=== PATIENT | female | born 1960 | race Caucasian/White ===

== ENCOUNTER 2016-11-23 12:28 | Emergency (ER) | payer MEDICAID ==
[~2016-11-23] VITALS: Ht 149.9 cm; Wt 45.5 kg
[~2016-11-23 12:28] MED LIST: METH10OR11 PO; PROP20 PO
[2016-11-23] MEDS ORDERED: CloNIDine HCL 0.2 MG TABLET PO ONE (14:45)
[2016-11-23 15:03] LABS: BASOPHILS % (AUTO) 0.6 % (0.0-2.0); EOSINOPHILS % (AUTO) 0.2 % (1.0-6.0); HEMOGLOBIN 14.3 g/dL (12.0-16.0); LYMPHOCYTES # (AUTO) 3.2 K/uL (1.0-4.8); LYMPHOCYTES % (AUTO) 23.9 % (22.0-44.0); MEAN CORPUSCULAR HEMOGLOBIN 28.8 pg (26.0-34.0); MEAN CORPUSCULAR HGB CONC 32.5 G/dL (31.0-37.0); MEAN CORPUSCULAR VOLUME 89 fL (80-100); MONOCYTES # (AUTO) 0.7 K/uL (0.1-1.0); MONOCYTES % (AUTO) 5.3 % (2.0-9.0); NEUTROPHILS # (AUTO) 9.4 K/uL (1.8-7.7); PLATELET COUNT (AUTO) 358 K/uL (150-450); RED BLOOD CELL COUNT(AUTO) 4.95 MIL/uL (4.00-5.20); RED CELL DISTRIBUTION WIDTH 14.6 % (11.5-14.5); WHITE BLOOD COUNT (AUTO) 13.5 K/uL (4.5-11.0)
[2016-11-23 15:14] LABS: ANION GAP 9 mmol/L (8-16); CALCIUM, TOTAL 9.5 mg/dL (8.8-10.5); CARBON DIOXIDE 28 mmol/L (22-29); CHLORIDE 101 mmol/L (98-107); GLOMERULAR FILTR. RATE CALC > 60 mL/min (>60); POTASSIUM 3.9 mmol/L (3.5-5.1); SODIUM SERUM 138 mmol/L (136-145); UREA NITROGEN, BLOOD 14 mg/dL (7-18)
[2016-11-23 15:20] LABS: ALANINE AMINOTRANSFERASE 16 U/L (12-78); ALBUMIN 4.2 g/dL (3.4-5.0); ASPARTATE AMINOTRANSFERASE 20 U/L (15-37); BILIRUBIN,TOTAL 0.4 mg/dL (0.1-1.0); CREATINE KINASE, TOTAL 57 U/L (26-192)
[2016-11-23 16:54] LABS: APPEARANCE,URINE CLEAR (CLEAR); GLUCOSE, URINE (UA) NEGATIVE (NEGATIVE); KETONES,URINE NEGATIVE (NEGATIVE); LEUKOCYTE ESTERASE ,URINE NEGATIVE (NEGATIVE); OCCULT BLOOD,URINE NEGATIVE (NEGATIVE); PH,URINE 5.5 (5.0-8.0); PROTEIN,URINE NEGATIVE (NEGATIVE)
[2016-11-23 17:06] LABS: ADD UA MICROSCOPIC YES
[2016-11-23 17:08] LABS: RBC,URINE None Seen /HPF (0-2); WBC,URINE 0-2 /HPF (0-5)
[2016-11-23 17:09] LABS: SQUAMOUS EPITHELIAL CELL,UR Few /LPF (None Seen)
[2016-11-23 17:10] LABS: CALCIUM OXALATE CRYSTALS,UR Few /LPF (None Seen)
[2016-11-23 17:46] VITALS: BP 167/103
== END 2016-11-23 17:53 | disposition home or self-care (01) ==
LOC: EMS 12:29
DX: F13.239 Sedative, hypnotic or anxiolytic dependence with withdrawal, unspecified (principal); R11.0 Nausea; Z88.0 Allergy status to penicillin
CPT/HCPCS: 36415; 80053; 80307; 81001; 82550; 84484; 85025; 93005; 99285; G0480

== ENCOUNTER 2017-02-01 15:33 | Emergency (ER) | payer MEDICAID ==
[~2017-02-01] VITALS: Ht 162.6 cm; Wt 41.8 kg
[2017-02-01 19:36] LABS: GLUCOSE,POINT OF CARE 98 MG/DL (70-110)
[2017-02-01 19:59] VITALS: BP 122/73
== END 2017-02-01 20:32 | disposition home or self-care (01) ==
LOC: EMS 15:34
DX: R60.9 Edema, unspecified (principal); Z88.0 Allergy status to penicillin
CPT/HCPCS: 82948; 82962; 93005; 99283

== ENCOUNTER 2017-07-05 11:50 | Emergency (ER) | payer MEDICAID ==
[~2017-07-05] VITALS: Ht 160 cm; Wt 40.9 kg
[~2017-07-05 11:50] MED LIST changes: +BACTDSB PO; -PROP20 PO
[2017-07-05 14:58] LABS: BASOPHILS # (AUTO) 0.02 K/uL (0.00-0.20); BASOPHILS % (AUTO) 0.3 % (0.0-2.0); EOSINOPHILS # (AUTO) 0.19 K/uL (0.00-0.70); EOSINOPHILS % (AUTO) 2.33 % (1.0-6.0); HEMATOCRIT 36.6 % (36-46); HEMOGLOBIN 11.8 g/dL (12.0-16.0); LYMPHOCYTES # (AUTO) 2.1 K/uL (1.0-4.8); MEAN CORPUSCULAR HEMOGLOBIN 29.9 pg (26.0-34.0); MEAN CORPUSCULAR HGB CONC 32.3 G/dL (31.0-37.0); MEAN CORPUSCULAR VOLUME 92 fL (80-100); MONOCYTES # (AUTO) 0.5 K/uL (0.1-1.0); MONOCYTES % (AUTO) 6.4 % (2.0-9.0); NEUTROPHILS # (AUTO) 5.3 K/uL (1.8-7.7); NEUTROPHILS % (AUTO) 64.9 % (40.0-70.0); PLATELET COUNT (AUTO) 330 K/uL (150-450); RED BLOOD CELL COUNT(AUTO) 3.96 MIL/uL (4.00-5.20); RED CELL DISTRIBUTION WIDTH 17.5 % (11.5-14.5)
[2017-07-05 15:08] LABS: ANION GAP 6 mmol/L (8-16); CALCIUM, TOTAL 8.9 mg/dL (8.8-10.5); CARBON DIOXIDE 37 mmol/L (22-29); CHLORIDE 99 mmol/L (98-107); CREATININE 0.68 mg/dL (0.60-1.30); GLOMERULAR FILTR. RATE CALC > 60 mL/min (>60); GLUCOSE,RANDOM 59 mg/dL (70-110); POTASSIUM 3.4 mmol/L (3.5-5.1); SODIUM SERUM 142 mmol/L (136-145); UREA NITROGEN, BLOOD 13 mg/dL (7-18)
[2017-07-05 15:14] LABS: ALANINE AMINOTRANSFERASE 36 U/L (12-78); ALBUMIN 3.3 g/dL (3.4-5.0); ALKALINE PHOSPHATASE 120 U/L (46-116); ASPARTATE AMINOTRANSFERASE 35 U/L (15-37); BILIRUBIN,TOTAL 0.2 mg/dL (0.1-1.0); TOTAL PROTEIN, SERUM 7.8 g/dL (6.4-8.2)
[2017-07-05 15:58] VITALS: BP 104/59
[2017-07-05] MEDS ORDERED: CeFAZolin 1 GM/DEXTROSE 50 ML IV ONE (16:00)
== END 2017-07-05 17:04 | disposition home or self-care (01) ==
LOC: EMS 11:51
DX: R60.0 Localized edema (principal); F15.90 Other stimulant use, unspecified, uncomplicated; Z88.0 Allergy status to penicillin
CPT/HCPCS: 36415; 71010; 80053; 85025; 85379; 93005; 93970; 96365; 99285; J0690

== ENCOUNTER 2018-11-14 13:47 | Emergency (ER) | payer MEDICAID ==
[~2018-11-14] VITALS: Ht 160 cm; Wt 46.8 kg
[~2018-11-14 13:47] MED LIST changes: -BACTDSB PO
[2018-11-14] MEDS ORDERED: METH10SO PO (14:21)
[2018-11-14] MEDS ORDERED: LISI-662 PO (14:22)
[2018-11-14] MEDS ORDERED: KETOROLAC TROMETHAMINE 30 MG/ML VIAL IVP ONE (15:45)
[2018-11-14 16:38] LABS: BASOPHILS % (AUTO) 0.3 % (0.0-2.0); EOSINOPHILS % (AUTO) 0.1 % (1.0-6.0); HEMATOCRIT 40.1 % (36-46); HEMOGLOBIN 13.2 g/dL (12.0-16.0); LYMPHOCYTES # (AUTO) 3.4 K/uL (1.0-4.8); LYMPHOCYTES % (AUTO) 35.8 % (22.0-44.0); MEAN CORPUSCULAR HEMOGLOBIN 29.9 pg (26.0-34.0); MEAN CORPUSCULAR VOLUME 91 fL (80-100); MONOCYTES # (AUTO) 0.4 K/uL (0.1-1.0); MONOCYTES % (AUTO) 4.5 % (2.0-9.0); NEUTROPHILS # (AUTO) 5.7 K/uL (1.8-7.7); NEUTROPHILS % (AUTO) 59.3 % (40.0-70.0); PLATELET COUNT (AUTO) 345 K/uL (150-450); RED BLOOD CELL COUNT(AUTO) 4.43 MIL/uL (4.00-5.20); RED CELL DISTRIBUTION WIDTH 13.9 % (11.5-14.5)
[2018-11-14 16:49] LABS: APPEARANCE,URINE CLEAR (CLEAR); GLUCOSE, URINE (UA) NEGATIVE (NEGATIVE); KETONES,URINE TRACE mg/dL (NEGATIVE); LEUKOCYTE ESTERASE ,URINE NEGATIVE (NEGATIVE); NITRATE,URINE NEGATIVE (NEGATIVE); OCCULT BLOOD,URINE NEGATIVE (NEGATIVE); PH,URINE 5.5 (5.0-8.0); PROTEIN,URINE NEGATIVE (NEGATIVE)
[2018-11-14 16:53] LABS: ANION GAP 10 mmol/L (8-16); CALCIUM, TOTAL 9.5 mg/dL (8.8-10.5); CARBON DIOXIDE 29 mmol/L (22-29); CHLORIDE 103 mmol/L (98-107); CREATININE 0.72 mg/dL (0.60-1.30); GLOMERULAR FILTR. RATE CALC > 60 mL/min (>60); GLUCOSE,RANDOM 82 mg/dL (70-110); POTASSIUM 3.4 mmol/L (3.5-5.1); SODIUM SERUM 142 mmol/L (136-145); UREA NITROGEN, BLOOD 23 mg/dL (7-18)
[2018-11-14] MEDS ORDERED: GADOBUTROL 1 MMOL/ML 10 ML VIAL IVP ONE (16:53)
[2018-11-14 16:56] LABS: BILIRUBIN,URINE PRELIM. POSITIVE (NEGATIVE)
[2018-11-14 16:58] LABS: ALANINE AMINOTRANSFERASE 34 U/L (12-78); ALBUMIN 4.4 g/dL (3.4-5.0); ALKALINE PHOSPHATASE 86 U/L (46-116); ASPARTATE AMINOTRANSFERASE 37 U/L (15-37); BILIRUBIN,TOTAL 0.4 mg/dL (0.1-1.0); LIPASE 129 U/L (73-393); TOTAL PROTEIN, SERUM 8.3 g/dL (6.4-8.2)
[2018-11-14 17:18] LABS: WBC,URINE 0-2 /HPF (0-5)
[2018-11-14 17:19] LABS: BACTERIA,URINE None Seen /HPF (None Seen); RBC,URINE 0-2 /HPF (0-2); SQUAMOUS EPITHELIAL CELL,UR Few /LPF (None Seen)
[2018-11-14] MEDS ORDERED: ONDANSETRON HCL 4 MG/2 ML VIAL IVP ONE (20:30)
[2018-11-14 20:36] VITALS: BP 147/87
== END 2018-11-14 20:59 | disposition home or self-care (01) ==
LOC: EMS 13:52
DX: K80.20 Calculus of gallbladder without cholecystitis without obstruction (principal); K83.8 Other specified diseases of biliary tract; F31.9 Bipolar disorder, unspecified; F41.9 Anxiety disorder, unspecified; F11.90 Opioid use, unspecified, uncomplicated; Z88.0 Allergy status to penicillin
CPT/HCPCS: 36415; 74183; 76705; 80053; 81001; 83690; 84484; 85025; 93005; 96374; 96375; 99284; A9585; J1885; J2405

== ENCOUNTER 2020-04-22 13:06 | Emergency (ER) | payer MEDICAID ==
[~2020-04-22] VITALS: Ht 160 cm; Wt 40.9 kg
[~2020-04-22 13:06] MED LIST changes: +LISI-662 PO; -METH10OR11 PO; +METH10SO PO
[2020-04-22 14:53] LABS: BASOPHILS % (AUTO) 0.2 % (0.0-2.0); EOSINOPHILS % (AUTO) 0.2 % (1.0-6.0); HEMOGLOBIN 12.7 g/dL (12.0-16.0); LYMPHOCYTES # (AUTO) 4.9 K/uL (1.0-4.8); LYMPHOCYTES % (AUTO) 36.8 % (22.0-44.0); MEAN CORPUSCULAR HEMOGLOBIN 30.4 pg (26.0-34.0); MEAN CORPUSCULAR HGB CONC 32.6 G/dL (31.0-37.0); MEAN CORPUSCULAR VOLUME 94 fL (80-100); MONOCYTES # (AUTO) 0.8 K/uL (0.1-1.0); MONOCYTES % (AUTO) 5.8 % (2.0-9.0); NEUTROPHILS # (AUTO) 7.5 K/uL (1.8-7.7); PLATELET COUNT (AUTO) 354 K/uL (150-450); RED BLOOD CELL COUNT(AUTO) 4.17 MIL/uL (4.00-5.20); RED CELL DISTRIBUTION WIDTH 13.7 % (11.5-14.5)
[2020-04-22 15:13] LABS: CALCIUM, TOTAL 10.2 mg/dL (8.8-10.5); CREATININE 1.32 mg/dL (0.60-1.30); POTASSIUM 3.9 mmol/L (3.5-5.1)
[2020-04-22 16:10] VITALS: BP 114/88
== END 2020-04-22 16:16 | disposition home or self-care (01) ==
LOC: EMS 13:09
DX: I10 Essential (primary) hypertension (principal); G47.00 Insomnia, unspecified; F41.9 Anxiety disorder, unspecified; F31.9 Bipolar disorder, unspecified; F11.90 Opioid use, unspecified, uncomplicated; Z79.899 Other long term (current) drug therapy
CPT/HCPCS: 93005

== ENCOUNTER 2020-06-12 11:24 | Emergency (ER) | payer MEDICAID ==
[~2020-06-12] VITALS: Ht 167.6 cm; Wt 75.0 kg
[2020-06-12 12:10] LABS: BASOPHILS % (AUTO) 0.2 % (0.0-2.0); EOSINOPHILS % (AUTO) 0 % (1.0-6.0); HEMATOCRIT 35.6 % (36-46); HEMOGLOBIN 11.7 g/dL (12.0-16.0); LYMPHOCYTES # (AUTO) 3.7 K/uL (1.0-4.8); LYMPHOCYTES % (AUTO) 23.1 % (22.0-44.0); MEAN CORPUSCULAR HEMOGLOBIN 30.3 pg (26.0-34.0); MEAN CORPUSCULAR HGB CONC 32.9 G/dL (31.0-37.0); MEAN CORPUSCULAR VOLUME 92 fL (80-100); MONOCYTES # (AUTO) 0.5 K/uL (0.1-1.0); MONOCYTES % (AUTO) 3.1 % (2.0-9.0); NEUTROPHILS # (AUTO) 11.7 K/uL (1.8-7.7); NEUTROPHILS % (AUTO) 73.6 % (40.0-70.0); PLATELET COUNT (AUTO) 361 K/uL (150-450); RED BLOOD CELL COUNT(AUTO) 3.88 MIL/uL (4.00-5.20); RED CELL DISTRIBUTION WIDTH 13.4 % (11.5-14.5)
[2020-06-12 12:28] LABS: CALCIUM, TOTAL 9.6 mg/dL (8.8-10.5); CREATININE 0.99 mg/dL (0.60-1.30); POTASSIUM 3.5 mmol/L (3.5-5.1)
[2020-06-12 12:32] LABS: ALBUMIN 3.3 g/dL (3.4-5.0); BILIRUBIN,TOTAL 0.4 mg/dL (0.1-1.0); TOTAL PROTEIN, SERUM 7.7 g/dL (6.4-8.2)
[2020-06-12] MEDS ORDERED: PB/HYOSCY/ATR/SCOP/LIDO/MAALOX 55 ML BOTTLE PO ONE (14:15)
[2020-06-12] MEDS ORDERED: ONDANSETRON HCL 4 MG TABLET PO ONE (14:15)
[2020-06-12 14:53] VITALS: BP 143/94
== END 2020-06-12 15:01 | disposition home or self-care (01) ==
LOC: EMS 11:25
DX: K29.60 Other gastritis without bleeding (principal); R10.13 Epigastric pain; R11.0 Nausea; F15.90 Other stimulant use, unspecified, uncomplicated; Z88.0 Allergy status to penicillin
CPT/HCPCS: 36415; 80053; 83690; 84484; 85025; 93005; 99284; Q0162

== ENCOUNTER 2022-01-23 10:42 | Inpatient (IN) | payer MEDICAID ==
[~2022-01-23] VITALS: Ht 162.6 cm; Wt 42.2 kg
[~2022-01-23 10:42] MED LIST changes: -LISI-662 PO; +LISI-894 PO
[2022-01-23 11:33] LABS: EOSINOPHILS % (AUTO) 0 % (1.0-6.0); HEMOGLOBIN 13.4 g/dL (12.0-16.0); LYMPHOCYTES # (AUTO) 3.7 K/uL (1.0-4.8); LYMPHOCYTES % (AUTO) 17.1 % (22.0-44.0); MEAN CORPUSCULAR HEMOGLOBIN 30.8 pg (26.0-34.0); MEAN CORPUSCULAR HGB CONC 33.6 G/dL (31.0-37.0); MEAN CORPUSCULAR VOLUME 92 fL (80-100); MONOCYTES # (AUTO) 0.6 K/uL (0.1-1.0); MONOCYTES % (AUTO) 2.6 % (2.0-9.0); NEUTROPHILS # (AUTO) 17.2 K/uL (1.8-7.7); NEUTROPHILS % (AUTO) 80.3 % (40.0-70.0); PLATELET COUNT (AUTO) 346 K/uL (150-450); RED BLOOD CELL COUNT(AUTO) 4.36 MIL/uL (4.00-5.20); RED CELL DISTRIBUTION WIDTH 12.8 % (11.5-14.5)
[2022-01-23 11:48] LABS: COVID AG,FIA SOURCE NASOPHARYNGEAL
[2022-01-23 11:57] LABS: ANION GAP 10 mmol/L (8-16); CALCIUM, TOTAL 9.3 mg/dL (8.8-10.5); CARBON DIOXIDE 28 mmol/L (22-29); CHLORIDE 92 mmol/L (98-107); CREATININE 0.94 mg/dL (0.60-1.30); GLOMERULAR FILTR. RATE CALC 60 mL/min (>60); GLUCOSE,RANDOM 229 mg/dL (70-110); POTASSIUM 3.6 mmol/L (3.5-5.1); SODIUM SERUM 130 mmol/L (136-145); UREA NITROGEN, BLOOD 26 mg/dL (7-18)
[2022-01-23 12:02] LABS: ALANINE AMINOTRANSFERASE 44 U/L (12-78); ALBUMIN 4.1 g/dL (3.4-5.0); ALKALINE PHOSPHATASE 117 U/L (46-116); ASPARTATE AMINOTRANSFERASE 56 U/L (15-37); BILIRUBIN,TOTAL 0.7 mg/dL (0.1-1.0); TOTAL PROTEIN, SERUM 9.3 g/dL (6.4-8.2)
[2022-01-23 12:10] LABS: ACETAMINOPHEN < 2 mcg/mL (10-30)
[2022-01-23] MEDS ORDERED: QUEtiapine FUMARATE 100 MG TABLET PO PRN (12:15)
[2022-01-23] MEDS ORDERED: ZOLPIDEM TARTRATE 10 MG TABLET PO PRN (12:15)
[2022-01-23] MEDS ORDERED: LORazepam 2 MG TABLET PO PRN (12:15)
[2022-01-23] MEDS ORDERED: LORazepam 2 MG/ML VIAL ONE (12:19)
[2022-01-23] MEDS ORDERED: LORazepam 2 MG/ML VIAL IM ONE (12:30)
[2022-01-23] MEDS ORDERED: SODIUM CHLORIDE 0.9% 1,000 ML IV ONE (14:45)
[2022-01-23 14:57] LABS: SALICYLATE 1.1 mg/dL (2.8-20.0)
[2022-01-23] MEDS ORDERED: BISACODYL 10 MG RECTAL RECTAL SUPPOSITORY PR PRN (15:00)
[2022-01-23] MEDS ORDERED: MAGNESIUM HYDROXIDE SUSPENSION 30 ML UDCUP PO PRN (15:00)
[2022-01-23] MEDS ORDERED: ONDANSETRON HCL 4 MG/2 ML VIAL IVP PRN (15:00)
[2022-01-23] MEDS ORDERED: LORazepam 2 MG/ML VIAL IVP PRN (15:00)
[2022-01-23] MEDS ORDERED: MORPHINE SULFATE 2 MG/ML SYRINGE IVP PRN (15:00)
[2022-01-23] MEDS ORDERED: ZOLPIDEM TARTRATE 5 MG TABLET PO PRN (15:00)
[2022-01-23 17:03] LABS: APPEARANCE,URINE CLEAR (CLEAR); BILIRUBIN,URINE NEGATIVE (NEGATIVE); GLUCOSE, URINE (UA) 300-500 mg/dL (NEGATIVE); LEUKOCYTE ESTERASE ,URINE NEGATIVE (NEGATIVE); NITRATE,URINE NEGATIVE (NEGATIVE); OCCULT BLOOD,URINE MODERATE (NEGATIVE); PH,URINE 5.5 (5.0-8.0); PROTEIN,URINE 30-70 mg/dL (NEGATIVE); SPECIFIC GRAVITIY, URINE 1.016 (1.003-1.030); UROBILINOGEN,URINE <=1.0 mg/dL (<=1.0)
[2022-01-23 17:11] LABS: AMPHET/METH SCREEN,URINE NEGATIVE (NEGATIVE); BARBITURATE SCREEN, URINE NEGATIVE (NEGATIVE); BENZODIAZEPINES SCREEN,URINE POSITIVE (NEGATIVE); CANNABINOID SCREEN,URINE NEGATIVE (NEGATIVE); COCAINE SCREEN,URINE NEGATIVE (NEGATIVE); METHADONE SCREEN, URINE POSITIVE (NEGATIVE); OPIATE SCREEN,URINE NEGATIVE (NEGATIVE)
[2022-01-23 17:12] LABS: PHENCYCLIDINE SCREEN,URINE NEGATIVE (NEGATIVE)
[2022-01-23] MEDS: HEPARIN SODIUM,PORCINE 5,000 UNITS/ML VIAL SQ SCH ×2 (17:25→23:51)
[2022-01-23 18:09] LABS: SQUAMOUS EPITHELIAL CELL,UR Rare /LPF (None Seen)
[2022-01-23 18:11] LABS: WBC,URINE 0-2 /HPF (0-5)
[2022-01-23 18:12] LABS: BACTERIA,URINE None Seen /HPF (None Seen)
[2022-01-23] MEDS: HYDROCODONE/ACETAMINOPHEN 5-325 MG TABLET PO PRN (20:44)
[2022-01-23] MEDS: LevETIRAcetam 500 MG TABLET PO SCH (20:44)
[2022-01-23] MEDS: DOCUSATE SODIUM 100 MG CAPSULE PO SCH (20:44)
[2022-01-23 21:12] VITALS: BP 144/85
[2022-01-24] VITALS (7 sets, daily range): BP systolic 112–154; BP diastolic 70–87
[2022-01-24] MEDS: LevETIRAcetam 500 MG TABLET PO SCH ×2 (08:33→20:17)
[2022-01-24] MEDS: LISINOPRIL 20 MG TABLET PO SCH (08:33)
[2022-01-24] MEDS: PANTOPRAZOLE SODIUM 40 MG DR TABLET PO SCH (08:33)
[2022-01-24] MEDS: DOCUSATE SODIUM 100 MG CAPSULE PO SCH ×2 (08:34→20:17)
[2022-01-24] MEDS: HEPARIN SODIUM,PORCINE 5,000 UNITS/ML VIAL SQ SCH ×2 (08:34→16:37)
[2022-01-24 11:13] LABS: BASOPHILS % (AUTO) 0.1 % (0.0-2.0); EOSINOPHILS % (AUTO) 0.1 % (1.0-6.0); HEMOGLOBIN 12.3 g/dL (12.0-16.0); LYMPHOCYTES % (AUTO) 17.1 % (22.0-44.0); MEAN CORPUSCULAR HEMOGLOBIN 30.6 pg (26.0-34.0); MEAN CORPUSCULAR HGB CONC 33.3 G/dL (31.0-37.0); MEAN CORPUSCULAR VOLUME 92 fL (80-100); MONOCYTES # (AUTO) 0.8 K/uL (0.1-1.0); MONOCYTES % (AUTO) 4.7 % (2.0-9.0); NEUTROPHILS # (AUTO) 13.5 K/uL (1.8-7.7); PLATELET COUNT (AUTO) 217 K/uL (150-450); RED BLOOD CELL COUNT(AUTO) 4.03 MIL/uL (4.00-5.20); RED CELL DISTRIBUTION WIDTH 12.9 % (11.5-14.5)
[2022-01-24 11:29] LABS: ANION GAP 10 mmol/L (8-16); CALCIUM, TOTAL 9.1 mg/dL (8.8-10.5); CARBON DIOXIDE 27 mmol/L (22-29); CHLORIDE 97 mmol/L (98-107); CREATININE 0.74 mg/dL (0.60-1.30); GLOMERULAR FILTR. RATE CALC > 60 mL/min (>60); GLUCOSE,RANDOM 106 mg/dL (70-110); SODIUM SERUM 134 mmol/L (136-145); UREA NITROGEN, BLOOD 22 mg/dL (7-18)
[2022-01-24] MEDS: METHADONE HCL 10 MG TABLET PO SCH (13:42)
[2022-01-24] MEDS: HYDROCODONE/ACETAMINOPHEN 5-325 MG TABLET PO PRN (20:22)
[2022-01-25 03:52] VITALS: BP 122/75
[2022-01-25 07:30] VITALS: BP 140/78
[2022-01-25] MEDS: LevETIRAcetam 500 MG TABLET PO SCH ×2 (08:45→20:07)
[2022-01-25] MEDS: PANTOPRAZOLE SODIUM 40 MG DR TABLET PO SCH (08:45)
[2022-01-25] MEDS: METHADONE HCL 10 MG TABLET PO SCH (08:46)
[2022-01-25] MEDS: HEPARIN SODIUM,PORCINE 5,000 UNITS/ML VIAL SQ SCH ×3 (08:46→16:39)
[2022-01-25] MEDS: LISINOPRIL 20 MG TABLET PO SCH (08:46)
[2022-01-25] MEDS: DOCUSATE SODIUM 100 MG CAPSULE PO SCH ×2 (08:46→20:07)
[2022-01-25 12:16] VITALS: BP 120/79
[2022-01-25 13:18] LABS: BASOPHILS % (AUTO) 0.1 % (0.0-2.0); EOSINOPHILS % (AUTO) 0 % (1.0-6.0); HEMATOCRIT 38.4 % (36-46); HEMOGLOBIN 12.6 g/dL (12.0-16.0); LYMPHOCYTES # (AUTO) 2.8 K/uL (1.0-4.8); LYMPHOCYTES % (AUTO) 20.2 % (22.0-44.0); MEAN CORPUSCULAR HEMOGLOBIN 30.4 pg (26.0-34.0); MEAN CORPUSCULAR HGB CONC 32.8 G/dL (31.0-37.0); MEAN CORPUSCULAR VOLUME 93 fL (80-100); MONOCYTES # (AUTO) 0.7 K/uL (0.1-1.0); MONOCYTES % (AUTO) 4.7 % (2.0-9.0); NEUTROPHILS # (AUTO) 10.5 K/uL (1.8-7.7); PLATELET COUNT (AUTO) 220 K/uL (150-450); RED BLOOD CELL COUNT(AUTO) 4.15 MIL/uL (4.00-5.20); RED CELL DISTRIBUTION WIDTH 13.2 % (11.5-14.5)
[2022-01-25 13:25] LABS: ANION GAP 8 mmol/L (8-16); CALCIUM, TOTAL 9.3 mg/dL (8.8-10.5); CARBON DIOXIDE 31 mmol/L (22-29); CHLORIDE 96 mmol/L (98-107); CREATININE 0.82 mg/dL (0.60-1.30); GLOMERULAR FILTR. RATE CALC > 60 mL/min (>60); GLUCOSE,RANDOM 76 mg/dL (70-110); SODIUM SERUM 135 mmol/L (136-145); UREA NITROGEN, BLOOD 25 mg/dL (7-18)
[2022-01-25 15:08] VITALS: BP 145/80
[2022-01-25] MEDS: ACETAMINOPHEN 325 MG TABLET PO PRN (20:07)
[2022-01-25 20:12] VITALS: BP 122/71
[2022-01-26] VITALS (7 sets, daily range): BP systolic 104–132; BP diastolic 63–76
[2022-01-26] MEDS: HEPARIN SODIUM,PORCINE 5,000 UNITS/ML VIAL SQ SCH ×4 (00:14→23:58)
[2022-01-26 06:30] LABS: BASOPHILS % (AUTO) 0.1 % (0.0-2.0); EOSINOPHILS % (AUTO) 0 % (1.0-6.0); HEMATOCRIT 32.5 % (36-46); LYMPHOCYTES # (AUTO) 1.7 K/uL (1.0-4.8); LYMPHOCYTES % (AUTO) 10.8 % (22.0-44.0); MEAN CORPUSCULAR HEMOGLOBIN 30.8 pg (26.0-34.0); MEAN CORPUSCULAR HGB CONC 33.8 G/dL (31.0-37.0); MEAN CORPUSCULAR VOLUME 91 fL (80-100); MONOCYTES # (AUTO) 0.9 K/uL (0.1-1.0); MONOCYTES % (AUTO) 5.7 % (2.0-9.0); NEUTROPHILS # (AUTO) 12.8 K/uL (1.8-7.7); NEUTROPHILS % (AUTO) 83.4 % (40.0-70.0); PLATELET COUNT (AUTO) 181 K/uL (150-450); RED BLOOD CELL COUNT(AUTO) 3.57 MIL/uL (4.00-5.20)
[2022-01-26 06:42] LABS: ANION GAP 3 mmol/L (8-16); CALCIUM, TOTAL 8.4 mg/dL (8.8-10.5); CARBON DIOXIDE 32 mmol/L (22-29); CHLORIDE 98 mmol/L (98-107); CREATININE 0.69 mg/dL (0.60-1.30); GLOMERULAR FILTR. RATE CALC > 60 mL/min (>60); GLUCOSE,RANDOM 103 mg/dL (70-110); POTASSIUM 3.9 mmol/L (3.5-5.1); SODIUM SERUM 133 mmol/L (136-145); UREA NITROGEN, BLOOD 26 mg/dL (7-18)
[2022-01-26] MEDS: LISINOPRIL 20 MG TABLET PO SCH (08:39)
[2022-01-26] MEDS: DOCUSATE SODIUM 100 MG CAPSULE PO SCH ×2 (08:39→20:02)
[2022-01-26] MEDS: METHADONE HCL 10 MG TABLET PO SCH (08:39)
[2022-01-26] MEDS: LevETIRAcetam 500 MG TABLET PO SCH ×2 (08:39→20:02)
[2022-01-26] MEDS: PANTOPRAZOLE SODIUM 40 MG DR TABLET PO SCH (08:40)
[2022-01-26] MEDS: ACETAMINOPHEN 325 MG TABLET PO PRN (20:02)
[2022-01-27 04:45] VITALS: BP 99/57
[2022-01-27 07:32] LABS: APPEARANCE,URINE CLEAR (CLEAR); BILIRUBIN,URINE NEGATIVE (NEGATIVE); GLUCOSE, URINE (UA) 70-100 mg/dL (NEGATIVE); LEUKOCYTE ESTERASE ,URINE SMALL (NEGATIVE); NITRATE,URINE NEGATIVE (NEGATIVE); OCCULT BLOOD,URINE NEGATIVE (NEGATIVE); PH,URINE 6.5 (5.0-8.0); PROTEIN,URINE 30-70 mg/dL (NEGATIVE); SPECIFIC GRAVITIY, URINE 1.042 (1.003-1.030)
[2022-01-27 07:37] LABS: BASOPHILS % (AUTO) 0.1 % (0.0-2.0); EOSINOPHILS % (AUTO) 0.1 % (1.0-6.0); HEMATOCRIT 34.4 % (36-46); HEMOGLOBIN 11.2 g/dL (12.0-16.0); MEAN CORPUSCULAR HEMOGLOBIN 30.1 pg (26.0-34.0); MEAN CORPUSCULAR HGB CONC 32.5 G/dL (31.0-37.0); MEAN CORPUSCULAR VOLUME 93 fL (80-100); MONOCYTES # (AUTO) 0.9 K/uL (0.1-1.0); MONOCYTES % (AUTO) 5.7 % (2.0-9.0); NEUTROPHILS # (AUTO) 11.2 K/uL (1.8-7.7); NEUTROPHILS % (AUTO) 74.1 % (40.0-70.0); PLATELET COUNT (AUTO) 212 K/uL (150-450); RED BLOOD CELL COUNT(AUTO) 3.71 MIL/uL (4.00-5.20); RED CELL DISTRIBUTION WIDTH 13.1 % (11.5-14.5)
[2022-01-27 07:38] VITALS: BP 119/70
[2022-01-27 07:42] LABS: ANION GAP 3 mmol/L (8-16); CALCIUM, TOTAL 9.1 mg/dL (8.8-10.5); CARBON DIOXIDE 37 mmol/L (22-29); CHLORIDE 98 mmol/L (98-107); GLOMERULAR FILTR. RATE CALC > 60 mL/min (>60); GLUCOSE,RANDOM 108 mg/dL (70-110); POTASSIUM 4.5 mmol/L (3.5-5.1); SODIUM SERUM 138 mmol/L (136-145); UREA NITROGEN, BLOOD 26 mg/dL (7-18)
[2022-01-27] MEDS: LISINOPRIL 20 MG TABLET PO SCH (08:42)
[2022-01-27] MEDS: PANTOPRAZOLE SODIUM 40 MG DR TABLET PO SCH (08:42)
[2022-01-27] MEDS: HEPARIN SODIUM,PORCINE 5,000 UNITS/ML VIAL SQ SCH ×3 (08:42→23:31)
[2022-01-27] MEDS: LevETIRAcetam 500 MG TABLET PO SCH ×2 (08:43→19:41)
[2022-01-27] MEDS: METHADONE HCL 10 MG TABLET PO SCH (08:43)
[2022-01-27] MEDS: DOCUSATE SODIUM 100 MG CAPSULE PO SCH ×2 (08:43→21:00)
[2022-01-27 09:31] LABS: BACTERIA,URINE None Seen /HPF (None Seen); RBC,URINE None Seen /HPF (0-2)
[2022-01-27 09:32] LABS: SQUAMOUS EPITHELIAL CELL,UR Rare /LPF (None Seen); TRIPLE PHOSPHATE CRYSTAL,UR Few /LPF (None Seen)
[2022-01-27 11:39] VITALS: BP 120/70
[2022-01-27 15:24] VITALS: BP 110/72
[2022-01-27 19:24] VITALS: BP 145/76
[2022-01-27] MEDS: ACETAMINOPHEN 325 MG TABLET PO PRN (19:41)
[2022-01-27 23:07] VITALS: BP 135/78
[2022-01-27] MEDS: MELATONIN 5 MG TABLET PO PRN (23:31)
[2022-01-28 03:30] VITALS: BP 136/73
[2022-01-28 07:52] VITALS: BP 128/72
[2022-01-28] MEDS: HEPARIN SODIUM,PORCINE 5,000 UNITS/ML VIAL SQ SCH ×3 (08:06→23:00)
[2022-01-28] MEDS: DOCUSATE SODIUM 100 MG CAPSULE PO SCH ×3 (08:07→21:00)
[2022-01-28] MEDS: LevETIRAcetam 500 MG TABLET PO SCH ×2 (08:07→20:25)
[2022-01-28] MEDS: METHADONE HCL 10 MG TABLET PO SCH (08:08)
[2022-01-28] MEDS: PANTOPRAZOLE SODIUM 40 MG DR TABLET PO SCH (08:08)
[2022-01-28] MEDS: LISINOPRIL 20 MG TABLET PO SCH (08:08)
[2022-01-28 11:05] VITALS: BP 123/73
[2022-01-28 15:39] VITALS: BP 119/76
[2022-01-28] MEDS: ACETAMINOPHEN 325 MG TABLET PO PRN (20:35)
[2022-01-28 21:50] VITALS: BP 162/70
[2022-01-29 06:56] VITALS: BP 137/87
[2022-01-29 08:07] VITALS: BP 172/87
[2022-01-29] MEDS: DOCUSATE SODIUM 100 MG CAPSULE PO SCH ×2 (09:09→20:14)
[2022-01-29] MEDS: PANTOPRAZOLE SODIUM 40 MG DR TABLET PO SCH (09:11)
[2022-01-29] MEDS: LISINOPRIL 20 MG TABLET PO SCH (09:11)
[2022-01-29] MEDS: LevETIRAcetam 500 MG TABLET PO SCH ×2 (09:11→20:14)
[2022-01-29] MEDS: METHADONE HCL 10 MG TABLET PO SCH (09:11)
[2022-01-29] MEDS: HEPARIN SODIUM,PORCINE 5,000 UNITS/ML VIAL SQ SCH ×2 (09:12→16:34)
[2022-01-29 16:33] VITALS: BP 150/90
[2022-01-29 19:49] VITALS: BP 141/96
[2022-01-30] MEDS: HEPARIN SODIUM,PORCINE 5,000 UNITS/ML VIAL SQ SCH ×4 (00:03→23:43)
[2022-01-30 04:23] VITALS: BP 122/76
[2022-01-30 06:59] LABS: EOSINOPHILS % (AUTO) 0.1 % (1.0-6.0); HEMATOCRIT 32.4 % (36-46); HEMOGLOBIN 10.6 g/dL (12.0-16.0); LYMPHOCYTES # (AUTO) 4.2 K/uL (1.0-4.8); LYMPHOCYTES % (AUTO) 24.5 % (22.0-44.0); MEAN CORPUSCULAR HGB CONC 32.9 G/dL (31.0-37.0); MEAN CORPUSCULAR VOLUME 91 fL (80-100); MONOCYTES # (AUTO) 1.2 K/uL (0.1-1.0); MONOCYTES % (AUTO) 6.9 % (2.0-9.0); NEUTROPHILS # (AUTO) 11.6 K/uL (1.8-7.7); NEUTROPHILS % (AUTO) 68.5 % (40.0-70.0); PLATELET COUNT (AUTO) 337 K/uL (150-450); RED BLOOD CELL COUNT(AUTO) 3.55 MIL/uL (4.00-5.20); RED CELL DISTRIBUTION WIDTH 13.4 % (11.5-14.5)
[2022-01-30 07:16] LABS: ALANINE AMINOTRANSFERASE 28 U/L (12-78); ALBUMIN 2.7 g/dL (3.4-5.0); ALKALINE PHOSPHATASE 93 U/L (46-116); ANION GAP 8 mmol/L (8-16); ASPARTATE AMINOTRANSFERASE 31 U/L (15-37); BILIRUBIN,TOTAL 0.4 mg/dL (0.1-1.0); CARBON DIOXIDE 32 mmol/L (22-29); CHLORIDE 95 mmol/L (98-107); CREATININE 0.63 mg/dL (0.60-1.30); GLOMERULAR FILTR. RATE CALC > 60 mL/min (>60); GLUCOSE,RANDOM 96 mg/dL (70-110); POTASSIUM 4.2 mmol/L (3.5-5.1); SODIUM SERUM 135 mmol/L (136-145); UREA NITROGEN, BLOOD 38 mg/dL (7-18)
[2022-01-30 08:00] VITALS: BP 136/87
[2022-01-30] MEDS: METHADONE HCL 10 MG TABLET PO SCH (08:22)
[2022-01-30] MEDS: DOCUSATE SODIUM 100 MG CAPSULE PO SCH ×2 (08:23→21:00)
[2022-01-30] MEDS: LevETIRAcetam 500 MG TABLET PO SCH ×2 (08:23→21:05)
[2022-01-30] MEDS: PANTOPRAZOLE SODIUM 40 MG DR TABLET PO SCH (08:23)
[2022-01-30] MEDS: LISINOPRIL 20 MG TABLET PO SCH (08:23)
[2022-01-30] MEDS ORDERED: *CLINICAL-CEFEPIME DOSING CLINICAL ONE (13:15)
[2022-01-30] MEDS ORDERED: CEFEPIME HCL 1 GM in DEXTROSE 5%-WATER 50 ML IV ONE (14:00)
[2022-01-30] MEDS ORDERED: SODIUM CHLORIDE 0.9% 100 ML ONE (14:43)
[2022-01-30] MEDS ORDERED: VANCOMYCIN HCL 1 GM in DEXTROSE 5%-WATER 250 ML IV ONE (15:00)
[2022-01-30 15:32] VITALS: BP 130/84
[2022-01-30 16:07] LABS: APPEARANCE,URINE CLEAR (CLEAR); BILIRUBIN,URINE NEGATIVE (NEGATIVE); GLUCOSE, URINE (UA) NEGATIVE (NEGATIVE); KETONES,URINE TRACE mg/dL (NEGATIVE); LEUKOCYTE ESTERASE ,URINE MODERATE (NEGATIVE); NITRATE,URINE NEGATIVE (NEGATIVE); OCCULT BLOOD,URINE NEGATIVE (NEGATIVE); PROTEIN,URINE NEGATIVE (NEGATIVE); SPECIFIC GRAVITIY, URINE 1.024 (1.003-1.030)
[2022-01-30 16:30] LABS: RBC,URINE None Seen /HPF (0-2)
[2022-01-30 16:31] LABS: BACTERIA,URINE None Seen /HPF (None Seen); SQUAMOUS EPITHELIAL CELL,UR Few /LPF (None Seen)
[2022-01-30 20:11] VITALS: BP 142/78
[2022-01-31 04:19] VITALS: BP 130/74
[2022-01-31] MEDS: CEFEPIME HCL 1 GM in DEXTROSE 5%-WATER 50 ML IV SCH ×2 (05:53→16:29)
[2022-01-31 06:12] LABS: BASOPHILS % (AUTO) 0.2 % (0.0-2.0); EOSINOPHILS % (AUTO) 0.4 % (1.0-6.0); HEMATOCRIT 31.1 % (36-46); HEMOGLOBIN 10.3 g/dL (12.0-16.0); LYMPHOCYTES # (AUTO) 4.1 K/uL (1.0-4.8); LYMPHOCYTES % (AUTO) 30.7 % (22.0-44.0); MEAN CORPUSCULAR HEMOGLOBIN 30.2 pg (26.0-34.0); MEAN CORPUSCULAR HGB CONC 33.1 G/dL (31.0-37.0); MEAN CORPUSCULAR VOLUME 91 fL (80-100); MONOCYTES # (AUTO) 0.8 K/uL (0.1-1.0); MONOCYTES % (AUTO) 6.1 % (2.0-9.0); NEUTROPHILS # (AUTO) 8.4 K/uL (1.8-7.7); NEUTROPHILS % (AUTO) 62.6 % (40.0-70.0); PLATELET COUNT (AUTO) 335 K/uL (150-450); RED BLOOD CELL COUNT(AUTO) 3.41 MIL/uL (4.00-5.20); RED CELL DISTRIBUTION WIDTH 13.2 % (11.5-14.5)
[2022-01-31 06:28] LABS: ALANINE AMINOTRANSFERASE 27 U/L (12-78); ALBUMIN 2.6 g/dL (3.4-5.0); ALKALINE PHOSPHATASE 98 U/L (46-116); ANION GAP 3 mmol/L (8-16); ASPARTATE AMINOTRANSFERASE 30 U/L (15-37); BILIRUBIN,TOTAL 0.4 mg/dL (0.1-1.0); CALCIUM, TOTAL 9.1 mg/dL (8.8-10.5); CARBON DIOXIDE 33 mmol/L (22-29); CHLORIDE 98 mmol/L (98-107); CREATININE 0.73 mg/dL (0.60-1.30); GLOMERULAR FILTR. RATE CALC > 60 mL/min (>60); GLUCOSE,RANDOM 86 mg/dL (70-110); POTASSIUM 4.6 mmol/L (3.5-5.1); SODIUM SERUM 134 mmol/L (136-145); TOTAL PROTEIN, SERUM 6.7 g/dL (6.4-8.2); UREA NITROGEN, BLOOD 26 mg/dL (7-18)
[2022-01-31 07:59] VITALS: BP 143/73
[2022-01-31] MEDS: HEPARIN SODIUM,PORCINE 5,000 UNITS/ML VIAL SQ SCH ×2 (09:00→16:00)
[2022-01-31] MEDS: VANCOMYCIN HCL 500 MG in DEXTROSE 5%-WATER 100 ML IV SCH ×2 (09:00→20:33)
[2022-01-31] MEDS: LevETIRAcetam 500 MG TABLET PO SCH ×2 (09:00→20:33)
[2022-01-31] MEDS: PANTOPRAZOLE SODIUM 40 MG DR TABLET PO SCH (09:00)
[2022-01-31] MEDS: DOCUSATE SODIUM 100 MG CAPSULE PO SCH ×2 (09:00→20:33)
[2022-01-31] MEDS: LISINOPRIL 20 MG TABLET PO SCH (09:00)
[2022-01-31] MEDS: METHADONE HCL 10 MG TABLET PO SCH (09:01)
[2022-01-31 15:46] VITALS: BP 138/75
[2022-01-31 20:29] VITALS: BP 99/66
[2022-01-31] MEDS ORDERED: SODIUM CHLORIDE 0.9% 250 ML IV ONE (20:32)
[2022-02-01] MEDS: HEPARIN SODIUM,PORCINE 5,000 UNITS/ML VIAL SQ SCH ×3 (00:30→17:01)
[2022-02-01 03:16] VITALS: BP 131/76
[2022-02-01 03:30] VITALS: BP 118/78
[2022-02-01] MEDS: CEFEPIME HCL 1 GM in DEXTROSE 5%-WATER 50 ML IV SCH ×2 (06:41→17:03)
[2022-02-01 08:21] VITALS: BP 134/69
[2022-02-01 08:40] LABS: ANION GAP 3 mmol/L (8-16); CALCIUM, TOTAL 8.9 mg/dL (8.8-10.5); CARBON DIOXIDE 33 mmol/L (22-29); CHLORIDE 101 mmol/L (98-107); CREATININE 0.64 mg/dL (0.60-1.30); GLOMERULAR FILTR. RATE CALC > 60 mL/min (>60); GLUCOSE,RANDOM 96 mg/dL (70-110); POTASSIUM 4.3 mmol/L (3.5-5.1); SODIUM SERUM 137 mmol/L (136-145); UREA NITROGEN, BLOOD 30 mg/dL (7-18); VANCOMYCIN,RANDOM 10.2 mcg/mL (25.0-50.0)
[2022-02-01 08:55] LABS: BASOPHILS % (AUTO) 0.3 % (0.0-2.0); EOSINOPHILS % (AUTO) 0.9 % (1.0-6.0); HEMATOCRIT 31.3 % (36-46); HEMOGLOBIN 10.3 g/dL (12.0-16.0); LYMPHOCYTES # (AUTO) 4.2 K/uL (1.0-4.8); MEAN CORPUSCULAR HEMOGLOBIN 30.1 pg (26.0-34.0); MEAN CORPUSCULAR HGB CONC 32.8 G/dL (31.0-37.0); MEAN CORPUSCULAR VOLUME 92 fL (80-100); MONOCYTES # (AUTO) 0.8 K/uL (0.1-1.0); MONOCYTES % (AUTO) 5.2 % (2.0-9.0); NEUTROPHILS # (AUTO) 10.4 K/uL (1.8-7.7); NEUTROPHILS % (AUTO) 66.6 % (40.0-70.0); PLATELET COUNT (AUTO) 362 K/uL (150-450); RED BLOOD CELL COUNT(AUTO) 3.42 MIL/uL (4.00-5.20); RED CELL DISTRIBUTION WIDTH 12.9 % (11.5-14.5)
[2022-02-01] MEDS: LISINOPRIL 20 MG TABLET PO SCH (09:05)
[2022-02-01] MEDS: METHADONE HCL 10 MG TABLET PO SCH (09:05)
[2022-02-01] MEDS: LevETIRAcetam 500 MG TABLET PO SCH ×2 (09:05→20:29)
[2022-02-01] MEDS: PANTOPRAZOLE SODIUM 40 MG DR TABLET PO SCH (09:05)
[2022-02-01] MEDS: DOCUSATE SODIUM 100 MG CAPSULE PO SCH ×2 (09:05→20:29)
[2022-02-01] MEDS: VANCOMYCIN HCL 500 MG in DEXTROSE 5%-WATER 100 ML IV SCH (09:06)
[2022-02-01 16:02] VITALS: BP 147/81
[2022-02-01] MEDS ORDERED: SODIUM CHLORIDE 0.9% 250 ML IV ONE (18:49)
[2022-02-01 20:08] VITALS: BP 145/77
[2022-02-01] MEDS: HYDROCODONE/ACETAMINOPHEN 5-325 MG TABLET PO PRN (20:29)
[2022-02-01] MEDS: VANCOMYCIN HCL 750 MG in DEXTROSE 5%-WATER 250 ML IV SCH (20:43)
[2022-02-02] MEDS: HEPARIN SODIUM,PORCINE 5,000 UNITS/ML VIAL SQ SCH ×4 (00:18→23:28)
[2022-02-02 04:00] VITALS: BP 162/94
[2022-02-02] MEDS: CEFEPIME HCL 1 GM in DEXTROSE 5%-WATER 50 ML IV SCH ×2 (06:39→17:55)
[2022-02-02] MEDS: ACETAMINOPHEN 325 MG TABLET PO PRN (06:43)
[2022-02-02 07:33] VITALS: BP 160/88
[2022-02-02] MEDS: VANCOMYCIN HCL 750 MG in DEXTROSE 5%-WATER 250 ML IV SCH ×2 (08:23→20:36)
[2022-02-02] MEDS: LISINOPRIL 20 MG TABLET PO SCH (08:24)
[2022-02-02] MEDS: METHADONE HCL 10 MG TABLET PO SCH (08:24)
[2022-02-02] MEDS: LevETIRAcetam 500 MG TABLET PO SCH ×2 (08:24→20:36)
[2022-02-02] MEDS: DOCUSATE SODIUM 100 MG CAPSULE PO SCH ×2 (08:24→20:36)
[2022-02-02] MEDS: PANTOPRAZOLE SODIUM 40 MG DR TABLET PO SCH (08:24)
[2022-02-02 09:19] LABS: BASOPHILS % (AUTO) 0.1 % (0.0-2.0); EOSINOPHILS % (AUTO) 0.2 % (1.0-6.0); HEMATOCRIT 32.8 % (36-46); HEMOGLOBIN 10.9 g/dL (12.0-16.0); LYMPHOCYTES # (AUTO) 5.5 K/uL (1.0-4.8); MEAN CORPUSCULAR HEMOGLOBIN 30.2 pg (26.0-34.0); MEAN CORPUSCULAR HGB CONC 33.1 G/dL (31.0-37.0); MEAN CORPUSCULAR VOLUME 91 fL (80-100); MONOCYTES # (AUTO) 0.5 K/uL (0.1-1.0); MONOCYTES % (AUTO) 2.8 % (2.0-9.0); NEUTROPHILS # (AUTO) 11.2 K/uL (1.8-7.7); NEUTROPHILS % (AUTO) 64.9 % (40.0-70.0); PLATELET COUNT (AUTO) 465 K/uL (150-450); RED CELL DISTRIBUTION WIDTH 13.3 % (11.5-14.5)
[2022-02-02 09:29] LABS: ANION GAP 6 mmol/L (8-16); CARBON DIOXIDE 29 mmol/L (22-29); CHLORIDE 97 mmol/L (98-107); CREATININE 0.61 mg/dL (0.60-1.30); GLOMERULAR FILTR. RATE CALC > 60 mL/min (>60); GLUCOSE,RANDOM 132 mg/dL (70-110); POTASSIUM 4.5 mmol/L (3.5-5.1); SODIUM SERUM 132 mmol/L (136-145); UREA NITROGEN, BLOOD 22 mg/dL (7-18)
[2022-02-02 20:27] VITALS: BP 137/93
[2022-02-02] MEDS: HYDROCODONE/ACETAMINOPHEN 5-325 MG TABLET PO PRN (20:38)
[2022-02-02] MEDS ORDERED: SODIUM CHLORIDE 0.9% 250 ML IV ONE (20:44)
[2022-02-03] MEDS: ACETAMINOPHEN 325 MG TABLET PO PRN (04:42)
[2022-02-03] MEDS: CEFEPIME HCL 1 GM in DEXTROSE 5%-WATER 50 ML IV SCH ×2 (04:42→18:49)
[2022-02-03 05:57] VITALS: BP 124/78
[2022-02-03 06:45] LABS: BASOPHILS % (AUTO) 0.2 % (0.0-2.0); HEMATOCRIT 32.6 % (36-46); HEMOGLOBIN 10.7 g/dL (12.0-16.0); LYMPHOCYTES # (AUTO) 7.1 K/uL (1.0-4.8); MEAN CORPUSCULAR HGB CONC 32.7 G/dL (31.0-37.0); MEAN CORPUSCULAR VOLUME 92 fL (80-100); MONOCYTES # (AUTO) 0.7 K/uL (0.1-1.0); MONOCYTES % (AUTO) 3.9 % (2.0-9.0); NEUTROPHILS # (AUTO) 10.1 K/uL (1.8-7.7); NEUTROPHILS % (AUTO) 55.9 % (40.0-70.0); PLATELET COUNT (AUTO) 505 K/uL (150-450); RED BLOOD CELL COUNT(AUTO) 3.56 MIL/uL (4.00-5.20); RED CELL DISTRIBUTION WIDTH 13.1 % (11.5-14.5)
[2022-02-03 07:51] VITALS: BP 123/70
[2022-02-03] MEDS: VANCOMYCIN HCL 750 MG in DEXTROSE 5%-WATER 250 ML IV SCH ×2 (09:30→22:19)
[2022-02-03] MEDS: METHADONE HCL 10 MG TABLET PO SCH (09:31)
[2022-02-03] MEDS: HEPARIN SODIUM,PORCINE 5,000 UNITS/ML VIAL SQ SCH ×3 (09:31→23:20)
[2022-02-03] MEDS: LISINOPRIL 20 MG TABLET PO SCH (09:32)
[2022-02-03] MEDS: PANTOPRAZOLE SODIUM 40 MG DR TABLET PO SCH (09:32)
[2022-02-03] MEDS: DOCUSATE SODIUM 100 MG CAPSULE PO SCH ×2 (09:32→22:19)
[2022-02-03] MEDS: LevETIRAcetam 500 MG TABLET PO SCH ×2 (09:32→22:19)
[2022-02-03 09:37] LABS: ALANINE AMINOTRANSFERASE 41 U/L (12-78); ALBUMIN 2.7 g/dL (3.4-5.0); ALKALINE PHOSPHATASE 165 U/L (46-116); ANION GAP 7 mmol/L (8-16); ASPARTATE AMINOTRANSFERASE 34 U/L (15-37); BILIRUBIN,TOTAL 0.4 mg/dL (0.1-1.0); CALCIUM, TOTAL 9.1 mg/dL (8.8-10.5); CARBON DIOXIDE 28 mmol/L (22-29); CHLORIDE 97 mmol/L (98-107); CREATININE 0.73 mg/dL (0.60-1.30); GLOMERULAR FILTR. RATE CALC > 60 mL/min (>60); GLUCOSE,RANDOM 148 mg/dL (70-110); POTASSIUM 4.5 mmol/L (3.5-5.1); SODIUM SERUM 132 mmol/L (136-145); TOTAL PROTEIN, SERUM 7.1 g/dL (6.4-8.2); UREA NITROGEN, BLOOD 28 mg/dL (7-18); VANCOMYCIN,RANDOM 15.2 mcg/mL (25.0-50.0)
[2022-02-03 15:25] VITALS: BP 107/60
[2022-02-03] MEDS ORDERED: IOHEXOL 300 MG/ML 100 ML VIAL ONE (19:13)
[2022-02-03] MEDS ORDERED: SODIUM CHLORIDE 0.9% 0 ML ONE (19:13)
[2022-02-03 19:28] VITALS: BP 103/73
[2022-02-03] MEDS ORDERED: SODIUM CHLORIDE 0.9% 100 ML ONE ×2 (21:12→21:13)
[2022-02-03] MEDS: HYDROCODONE/ACETAMINOPHEN 5-325 MG TABLET PO PRN (22:20)
[2022-02-04 04:00] VITALS: BP 134/81
[2022-02-04] MEDS: CEFEPIME HCL 1 GM in DEXTROSE 5%-WATER 50 ML IV SCH (04:45)
[2022-02-04 07:31] VITALS: BP 145/77
[2022-02-04] MEDS: HEPARIN SODIUM,PORCINE 5,000 UNITS/ML VIAL SQ SCH ×2 (08:32→16:27)
[2022-02-04] MEDS: METHADONE HCL 10 MG TABLET PO SCH (08:32)
[2022-02-04] MEDS: LISINOPRIL 20 MG TABLET PO SCH (08:33)
[2022-02-04] MEDS: DOCUSATE SODIUM 100 MG CAPSULE PO SCH ×2 (08:33→21:17)
[2022-02-04] MEDS: LevETIRAcetam 500 MG TABLET PO SCH ×2 (08:33→21:17)
[2022-02-04] MEDS: PANTOPRAZOLE SODIUM 40 MG DR TABLET PO SCH (08:33)
[2022-02-04] MEDS: VANCOMYCIN HCL 750 MG in DEXTROSE 5%-WATER 250 ML IV SCH (08:34)
[2022-02-04] MEDS ORDERED: SODIUM CHLORIDE 0.9% 500 ML IV ONE (08:36)
[2022-02-04 09:16] LABS: BASOPHILS % (AUTO) 0.4 % (0.0-2.0); EOSINOPHILS % (AUTO) 0.4 % (1.0-6.0); HEMATOCRIT 35.9 % (36-46); HEMOGLOBIN 11.8 g/dL (12.0-16.0); LYMPHOCYTES % (AUTO) 40.7 % (22.0-44.0); MEAN CORPUSCULAR HEMOGLOBIN 30.5 pg (26.0-34.0); MEAN CORPUSCULAR HGB CONC 32.8 G/dL (31.0-37.0); MEAN CORPUSCULAR VOLUME 93 fL (80-100); MONOCYTES # (AUTO) 0.6 K/uL (0.1-1.0); MONOCYTES % (AUTO) 3.6 % (2.0-9.0); NEUTROPHILS # (AUTO) 9.4 K/uL (1.8-7.7); NEUTROPHILS % (AUTO) 54.9 % (40.0-70.0); PLATELET COUNT (AUTO) 572 K/uL (150-450); RED BLOOD CELL COUNT(AUTO) 3.87 MIL/uL (4.00-5.20); RED CELL DISTRIBUTION WIDTH 13.8 % (11.5-14.5)
[2022-02-04 09:39] LABS: ANION GAP 7 mmol/L (8-16); CALCIUM, TOTAL 9.7 mg/dL (8.8-10.5); CARBON DIOXIDE 29 mmol/L (22-29); CHLORIDE 98 mmol/L (98-107); CREATININE 0.67 mg/dL (0.60-1.30); GLOMERULAR FILTR. RATE CALC > 60 mL/min (>60); GLUCOSE,RANDOM 101 mg/dL (70-110); POTASSIUM 4.6 mmol/L (3.5-5.1); SODIUM SERUM 134 mmol/L (136-145); UREA NITROGEN, BLOOD 27 mg/dL (7-18)
[2022-02-04] MEDS ORDERED: MINERAL OIL 133 ML ENEMA PR PRN (11:45)
[2022-02-04] MEDS: POLYETHYLENE GLYCOL 3350 17 GM PACKET PO SCH ×2 (14:45→21:17)
[2022-02-04 14:51] VITALS: BP 127/67
[2022-02-04] MEDS: CefTRIAXone 1 GM/DEXTROSE 50 ML IV SCH (16:28)
[2022-02-04 20:44] VITALS: BP 102/67
[2022-02-05] MEDS: HEPARIN SODIUM,PORCINE 5,000 UNITS/ML VIAL SQ SCH ×4 (01:38→23:30)
[2022-02-05 05:09] VITALS: BP 135/79
[2022-02-05 06:37] LABS: BASOPHILS % (AUTO) 0.3 % (0.0-2.0); EOSINOPHILS % (AUTO) 0.8 % (1.0-6.0); HEMATOCRIT 33.5 % (36-46); HEMOGLOBIN 11.2 g/dL (12.0-16.0); LYMPHOCYTES # (AUTO) 6.9 K/uL (1.0-4.8); LYMPHOCYTES % (AUTO) 37.8 % (22.0-44.0); MEAN CORPUSCULAR HEMOGLOBIN 30.7 pg (26.0-34.0); MEAN CORPUSCULAR HGB CONC 33.4 G/dL (31.0-37.0); MEAN CORPUSCULAR VOLUME 92 fL (80-100); MONOCYTES # (AUTO) 0.7 K/uL (0.1-1.0); MONOCYTES % (AUTO) 3.7 % (2.0-9.0); NEUTROPHILS # (AUTO) 10.4 K/uL (1.8-7.7); NEUTROPHILS % (AUTO) 57.4 % (40.0-70.0); PLATELET COUNT (AUTO) 535 K/uL (150-450); RED BLOOD CELL COUNT(AUTO) 3.64 MIL/uL (4.00-5.20); RED CELL DISTRIBUTION WIDTH 13.7 % (11.5-14.5)
[2022-02-05 06:47] LABS: ALANINE AMINOTRANSFERASE 40 U/L (12-78); ALBUMIN 2.8 g/dL (3.4-5.0); ALKALINE PHOSPHATASE 216 U/L (46-116); ANION GAP 3 mmol/L (8-16); ASPARTATE AMINOTRANSFERASE 35 U/L (15-37); BILIRUBIN,TOTAL 0.3 mg/dL (0.1-1.0); C-REACTIVE PROTEIN QUANT 1.02 mg/dL (0.00-0.30); CALCIUM, TOTAL 9.1 mg/dL (8.8-10.5); CARBON DIOXIDE 33 mmol/L (22-29); CHLORIDE 100 mmol/L (98-107); CREATININE 0.69 mg/dL (0.60-1.30); GLOMERULAR FILTR. RATE CALC > 60 mL/min (>60); GLUCOSE,RANDOM 95 mg/dL (70-110); POTASSIUM 5.4 mmol/L (3.5-5.1); SODIUM SERUM 136 mmol/L (136-145); UREA NITROGEN, BLOOD 25 mg/dL (7-18)
[2022-02-05 08:05] VITALS: BP 149/78
[2022-02-05] MEDS: LISINOPRIL 20 MG TABLET PO SCH (09:53)
[2022-02-05] MEDS: LevETIRAcetam 500 MG TABLET PO SCH ×2 (09:53→20:31)
[2022-02-05] MEDS: POLYETHYLENE GLYCOL 3350 17 GM PACKET PO SCH ×2 (09:53→20:31)
[2022-02-05] MEDS: DOCUSATE SODIUM 100 MG CAPSULE PO SCH ×2 (09:53→20:31)
[2022-02-05] MEDS: PANTOPRAZOLE SODIUM 40 MG DR TABLET PO SCH (09:53)
[2022-02-05] MEDS: METHADONE HCL 10 MG TABLET PO SCH (09:53)
[2022-02-05 16:00] VITALS: BP 129/76
[2022-02-05] MEDS: CefTRIAXone 1 GM/DEXTROSE 50 ML IV SCH (16:45)
[2022-02-05 20:43] VITALS: BP 131/74
[2022-02-06 04:01] VITALS: BP 112/59
[2022-02-06] MEDS: DOCUSATE SODIUM 100 MG CAPSULE PO SCH ×2 (08:08→20:04)
[2022-02-06] MEDS: METHADONE HCL 10 MG TABLET PO SCH (08:08)
[2022-02-06] MEDS: POLYETHYLENE GLYCOL 3350 17 GM PACKET PO SCH ×2 (08:08→20:04)
[2022-02-06] MEDS: LevETIRAcetam 500 MG TABLET PO SCH ×2 (08:08→20:04)
[2022-02-06] MEDS: PANTOPRAZOLE SODIUM 40 MG DR TABLET PO SCH (08:08)
[2022-02-06] MEDS: LISINOPRIL 20 MG TABLET PO SCH (08:09)
[2022-02-06] MEDS: HEPARIN SODIUM,PORCINE 5,000 UNITS/ML VIAL SQ SCH ×3 (08:09→23:06)
[2022-02-06 08:18] VITALS: BP 123/61
[2022-02-06 08:19] LABS: ALANINE AMINOTRANSFERASE 42 U/L (12-78); ALBUMIN 2.6 g/dL (3.4-5.0); ALKALINE PHOSPHATASE 214 U/L (46-116); ANION GAP 6 mmol/L (8-16); ASPARTATE AMINOTRANSFERASE 41 U/L (15-37); BILIRUBIN,TOTAL 0.3 mg/dL (0.1-1.0); CALCIUM, TOTAL 8.9 mg/dL (8.8-10.5); CARBON DIOXIDE 30 mmol/L (22-29); CHLORIDE 100 mmol/L (98-107); CREATININE 0.66 mg/dL (0.60-1.30); GLOMERULAR FILTR. RATE CALC > 60 mL/min (>60); GLUCOSE,RANDOM 107 mg/dL (70-110); POTASSIUM 5.1 mmol/L (3.5-5.1); SODIUM SERUM 136 mmol/L (136-145); TOTAL PROTEIN, SERUM 6.7 g/dL (6.4-8.2); UREA NITROGEN, BLOOD 27 mg/dL (7-18)
[2022-02-06 08:38] LABS: BASOPHILS % (AUTO) 0.2 % (0.0-2.0); EOSINOPHILS % (AUTO) 0.7 % (1.0-6.0); HEMATOCRIT 33.8 % (36-46); LYMPHOCYTES # (AUTO) 5.8 K/uL (1.0-4.8); LYMPHOCYTES % (AUTO) 36.3 % (22.0-44.0); MEAN CORPUSCULAR HEMOGLOBIN 30.4 pg (26.0-34.0); MEAN CORPUSCULAR HGB CONC 32.5 G/dL (31.0-37.0); MEAN CORPUSCULAR VOLUME 93 fL (80-100); MONOCYTES # (AUTO) 0.6 K/uL (0.1-1.0); MONOCYTES % (AUTO) 3.9 % (2.0-9.0); NEUTROPHILS # (AUTO) 9.4 K/uL (1.8-7.7); NEUTROPHILS % (AUTO) 58.9 % (40.0-70.0); PLATELET COUNT (AUTO) 477 K/uL (150-450); RED BLOOD CELL COUNT(AUTO) 3.62 MIL/uL (4.00-5.20); RED CELL DISTRIBUTION WIDTH 13.9 % (11.5-14.5)
[2022-02-06 16:10] LABS: COVID AG,FIA SOURCE NASOPHARYNGEAL
[2022-02-06 16:38] VITALS: BP 117/61
[2022-02-06] MEDS: CefTRIAXone 1 GM/DEXTROSE 50 ML IV SCH (16:52)
[2022-02-06 19:30] VITALS: BP 114/64
[2022-02-06] MEDS: ACETAMINOPHEN 325 MG TABLET PO PRN (20:04)
[2022-02-07 04:00] VITALS: BP 129/81
[2022-02-07] MEDS ORDERED: RINGERS SOLUTION,LACTATED 1,000 ML IV ONE (06:59)
[2022-02-07] MEDS: HEPARIN SODIUM,PORCINE 5,000 UNITS/ML VIAL SQ SCH ×3 (08:00→23:25)
[2022-02-07] MEDS ORDERED: BUPIVACAINE LIPOSOME/PF 1.3%-13.3MG/ML SUSPENSION 20 ML VIAL INJ ONE (08:00)
[2022-02-07 08:05] VITALS: BP 130/80
[2022-02-07] MEDS ORDERED: BUPIVACAINE HCL/PF 0.5% 30 ML VIAL ONE ×2 (08:10→10:02)
[2022-02-07] MEDS ORDERED: SODIUM CL IRRIG SOLN BAG 3,000 ML IRRIG ONE (08:11)
[2022-02-07] MEDS ORDERED: MUPIROCIN CALCIUM 2% 22 GM OINTMENT ONE (08:13)
[2022-02-07] MEDS ORDERED: TRANEXAMIC ACID 1,000 MG/10 ML VIAL ONE (08:13)
[2022-02-07 08:27] LABS: BASOPHILS % (AUTO) 0.5 % (0.0-2.0); EOSINOPHILS % (AUTO) 0.7 % (1.0-6.0); HEMATOCRIT 39.7 % (36-46); HEMOGLOBIN 12.8 g/dL (12.0-16.0); LYMPHOCYTES # (AUTO) 7.5 K/uL (1.0-4.8); LYMPHOCYTES % (AUTO) 50.9 % (22.0-44.0); MEAN CORPUSCULAR HEMOGLOBIN 30.4 pg (26.0-34.0); MEAN CORPUSCULAR HGB CONC 32.3 G/dL (31.0-37.0); MEAN CORPUSCULAR VOLUME 94 fL (80-100); MONOCYTES # (AUTO) 0.5 K/uL (0.1-1.0); MONOCYTES % (AUTO) 3.3 % (2.0-9.0); NEUTROPHILS # (AUTO) 6.5 K/uL (1.8-7.7); NEUTROPHILS % (AUTO) 44.6 % (40.0-70.0); PLATELET COUNT (AUTO) 436 K/uL (150-450); RED CELL DISTRIBUTION WIDTH 14.4 % (11.5-14.5)
[2022-02-07] MEDS ORDERED: VANCOMYCIN HCL 1 GM/VIAL ONE (08:33)
[2022-02-07] MEDS ORDERED: ACETAMINOPHEN 1000 MG/ISO-OSM 100 ML IV ONE (08:55)
[2022-02-07] MEDS: POLYETHYLENE GLYCOL 3350 17 GM PACKET PO SCH ×2 (09:00→21:12)
[2022-02-07] MEDS ORDERED: FentaNYL CITRATE PF 100 MCG/2 ML VIAL IVP PRN (09:00)
[2022-02-07] MEDS: DOCUSATE SODIUM 100 MG CAPSULE PO SCH ×2 (09:00→21:12)
[2022-02-07] MEDS: PANTOPRAZOLE SODIUM 40 MG DR TABLET PO SCH (09:00)
[2022-02-07] MEDS ORDERED: HYDROmorphone 2 MG/ML VIAL IVP PRN (09:00)
[2022-02-07 09:05] LABS: INR 0.9 (0.9-1.1)
[2022-02-07] MEDS ORDERED: BUPIVACAINE HCL/PF 0.25% 30 ML VIAL ONE (10:01)
[2022-02-07] MEDS ORDERED: BUPIVACAINE LIPOSOME/PF 1.3%-13.3MG/ML SUSPENSION 10 ML VIAL INJ ONE (11:15)
[2022-02-07] MEDS ORDERED: SUGAMMADEX SODIUM 200 MG/2 ML VIAL IVP ONE (11:17)
[2022-02-07 12:00] VITALS: BP 126/81
[2022-02-07] MEDS: LevETIRAcetam 500 MG TABLET PO SCH ×2 (13:54→21:12)
[2022-02-07] MEDS: METHADONE HCL 10 MG TABLET PO SCH (13:55)
[2022-02-07 15:45] VITALS: BP 154/77
[2022-02-07] MEDS: LISINOPRIL 20 MG TABLET PO SCH (15:50)
[2022-02-07] MEDS: CefTRIAXone 1 GM/DEXTROSE 50 ML IV SCH (15:50)
[2022-02-07] MEDS ORDERED: SODIUM CHLORIDE 0.9% 500 ML IV ONE (15:55)
[2022-02-07 19:29] VITALS: BP 114/69
[2022-02-07] MEDS: OXYGEN THERAPY IH SCH (20:00)
[2022-02-08 04:00] VITALS: BP 115/71
[2022-02-08] MEDS: ACETAMINOPHEN 325 MG TABLET PO PRN ×2 (04:31→16:09)
[2022-02-08] MEDS ORDERED: EPHEDrine SULFATE 50 MG/ML VIAL IM ONE (06:36)
[2022-02-08] MEDS ORDERED: LIDOCAINE/PF 2% 5 ML VIAL IM ONE (06:36)
[2022-02-08] MEDS ORDERED: ROCURONIUM BROMIDE 10 MG/ML 5 ML VIAL IVP ONE (06:36)
[2022-02-08] MEDS ORDERED: 0.9% SODIUM CHLORIDE 10 ML VIAL IVP ONE (06:36)
[2022-02-08] MEDS ORDERED: FentaNYL CITRATE PF 100 MCG/2 ML VIAL IVP ONE (06:36)
[2022-02-08] MEDS ORDERED: MIDAZOLAM HCL 2 MG/2 ML VIAL IVP ONE (06:36)
[2022-02-08] MEDS ORDERED: PROPOFOL 1% 20 ML VIAL IVP ONE (06:36)
[2022-02-08] MEDS ORDERED: ONDANSETRON HCL 4 MG/2 ML VIAL IVP ONE (06:36)
[2022-02-08] MEDS ORDERED: KETOROLAC TROMETHAMINE 60 MG/2 ML VIAL IM ONE (06:36)
[2022-02-08] MEDS: OXYGEN THERAPY IH SCH (08:00)
[2022-02-08 08:06] VITALS: BP 118/72
[2022-02-08] MEDS: DOCUSATE SODIUM 100 MG CAPSULE PO SCH ×2 (08:19→20:02)
[2022-02-08] MEDS: HEPARIN SODIUM,PORCINE 5,000 UNITS/ML VIAL SQ SCH (08:19)
[2022-02-08] MEDS: LevETIRAcetam 500 MG TABLET PO SCH ×2 (08:19→20:02)
[2022-02-08] MEDS: METHADONE HCL 10 MG TABLET PO SCH (08:19)
[2022-02-08] MEDS: PANTOPRAZOLE SODIUM 40 MG DR TABLET PO SCH (08:19)
[2022-02-08] MEDS: POLYETHYLENE GLYCOL 3350 17 GM PACKET PO SCH ×2 (08:31→20:02)
[2022-02-08] MEDS: LISINOPRIL 20 MG TABLET PO SCH (09:00)
[2022-02-08 10:06] LABS: BASOPHILS % (AUTO) 0.1 % (0.0-2.0); EOSINOPHILS % (AUTO) 0.2 % (1.0-6.0); HEMATOCRIT 31.7 % (36-46); HEMOGLOBIN 10.5 g/dL (12.0-16.0); LYMPHOCYTES # (AUTO) 6.1 K/uL (1.0-4.8); LYMPHOCYTES % (AUTO) 29.3 % (22.0-44.0); MEAN CORPUSCULAR HEMOGLOBIN 30.8 pg (26.0-34.0); MEAN CORPUSCULAR HGB CONC 33.2 G/dL (31.0-37.0); MEAN CORPUSCULAR VOLUME 93 fL (80-100); MONOCYTES % (AUTO) 4.7 % (2.0-9.0); NEUTROPHILS # (AUTO) 13.6 K/uL (1.8-7.7); NEUTROPHILS % (AUTO) 65.7 % (40.0-70.0); PLATELET COUNT (AUTO) 519 K/uL (150-450); RED BLOOD CELL COUNT(AUTO) 3.41 MIL/uL (4.00-5.20); RED CELL DISTRIBUTION WIDTH 13.9 % (11.5-14.5)
[2022-02-08 10:18] LABS: ANION GAP 5 mmol/L (8-16); CALCIUM, TOTAL 7.2 mg/dL (8.8-10.5); CARBON DIOXIDE 31 mmol/L (22-29); CHLORIDE 97 mmol/L (98-107); CREATININE 0.75 mg/dL (0.60-1.30); GLOMERULAR FILTR. RATE CALC > 60 mL/min (>60); GLUCOSE,RANDOM 152 mg/dL (70-110); POTASSIUM 4.9 mmol/L (3.5-5.1); SODIUM SERUM 133 mmol/L (136-145); UREA NITROGEN, BLOOD 31 mg/dL (7-18)
[2022-02-08 15:47] VITALS: BP 111/63
[2022-02-08] MEDS: CefTRIAXone 1 GM/DEXTROSE 50 ML IV SCH (16:08)
[2022-02-08 19:21] VITALS: BP 114/59
[2022-02-09 04:29] VITALS: BP 133/76
[2022-02-09 06:16] LABS: BASOPHILS % (AUTO) 0.4 % (0.0-2.0); EOSINOPHILS % (AUTO) 0.2 % (1.0-6.0); HEMATOCRIT 29.5 % (36-46); HEMOGLOBIN 9.9 g/dL (12.0-16.0); LYMPHOCYTES # (AUTO) 5.1 K/uL (1.0-4.8); LYMPHOCYTES % (AUTO) 25.6 % (22.0-44.0); MEAN CORPUSCULAR HEMOGLOBIN 30.9 pg (26.0-34.0); MEAN CORPUSCULAR HGB CONC 33.5 G/dL (31.0-37.0); MEAN CORPUSCULAR VOLUME 92 fL (80-100); MONOCYTES # (AUTO) 0.8 K/uL (0.1-1.0); MONOCYTES % (AUTO) 3.9 % (2.0-9.0); NEUTROPHILS # (AUTO) 13.8 K/uL (1.8-7.7); NEUTROPHILS % (AUTO) 69.9 % (40.0-70.0); PLATELET COUNT (AUTO) 455 K/uL (150-450)
[2022-02-09 07:24] VITALS: BP 138/68
[2022-02-09] MEDS: OXYGEN THERAPY IH SCH ×2 (08:00→20:00)
[2022-02-09] MEDS: DOCUSATE SODIUM 100 MG CAPSULE PO SCH ×2 (09:00→21:00)
[2022-02-09] MEDS: POLYETHYLENE GLYCOL 3350 17 GM PACKET PO SCH ×2 (09:00→19:48)
[2022-02-09] MEDS: METHADONE HCL 10 MG TABLET PO SCH (10:26)
[2022-02-09] MEDS: LISINOPRIL 20 MG TABLET PO SCH (10:26)
[2022-02-09] MEDS: PANTOPRAZOLE SODIUM 40 MG DR TABLET PO SCH (10:26)
[2022-02-09] MEDS: LevETIRAcetam 500 MG TABLET PO SCH ×2 (10:26→19:48)
[2022-02-09 15:53] VITALS: BP 100/52
[2022-02-09] MEDS: CefTRIAXone 1 GM/DEXTROSE 50 ML IV SCH (16:24)
[2022-02-09] MEDS: ETHYL ALCOHOL 62% ANTISEPTIC NASAL SANITIZER 0.6 ML AMPUL NASAL SCH (19:48)
[2022-02-09 19:53] VITALS: BP 123/67
[2022-02-10 05:12] VITALS: BP 126/70
[2022-02-10 07:27] VITALS: BP 126/85
[2022-02-10] MEDS: OXYGEN THERAPY IH SCH ×2 (08:00→20:00)
[2022-02-10 08:50] LABS: BASOPHILS % (AUTO) 0.2 % (0.0-2.0); EOSINOPHILS % (AUTO) 0.1 % (1.0-6.0); HEMATOCRIT 30.5 % (36-46); HEMOGLOBIN 9.9 g/dL (12.0-16.0); LYMPHOCYTES # (AUTO) 5.5 K/uL (1.0-4.8); LYMPHOCYTES % (AUTO) 29.5 % (22.0-44.0); MEAN CORPUSCULAR HEMOGLOBIN 30.3 pg (26.0-34.0); MEAN CORPUSCULAR HGB CONC 32.6 G/dL (31.0-37.0); MEAN CORPUSCULAR VOLUME 93 fL (80-100); MONOCYTES # (AUTO) 0.5 K/uL (0.1-1.0); MONOCYTES % (AUTO) 2.7 % (2.0-9.0); NEUTROPHILS # (AUTO) 12.5 K/uL (1.8-7.7); NEUTROPHILS % (AUTO) 67.5 % (40.0-70.0); PLATELET COUNT (AUTO) 468 K/uL (150-450); RED BLOOD CELL COUNT(AUTO) 3.28 MIL/uL (4.00-5.20); RED CELL DISTRIBUTION WIDTH 14.4 % (11.5-14.5)
[2022-02-10] MEDS: DOCUSATE SODIUM 100 MG CAPSULE PO SCH ×2 (09:00→20:26)
[2022-02-10] MEDS: POLYETHYLENE GLYCOL 3350 17 GM PACKET PO SCH ×2 (09:00→20:27)
[2022-02-10] MEDS: PANTOPRAZOLE SODIUM 40 MG DR TABLET PO SCH (10:04)
[2022-02-10] MEDS: LevETIRAcetam 500 MG TABLET PO SCH ×2 (10:04→20:42)
[2022-02-10] MEDS: ETHYL ALCOHOL 62% ANTISEPTIC NASAL SANITIZER 0.6 ML AMPUL NASAL SCH ×2 (10:04→20:42)
[2022-02-10] MEDS: ACETAMINOPHEN 325 MG TABLET PO PRN (10:05)
[2022-02-10] MEDS: LISINOPRIL 20 MG TABLET PO SCH (10:05)
[2022-02-10] MEDS ORDERED: METHADONE HCL 10 MG TABLET PO ONE (10:15)
[2022-02-10] MEDS: METHADONE HCL 10 MG TABLET PO SCH (10:25)
[2022-02-10] MEDS: CefTRIAXone 1 GM/DEXTROSE 50 ML IV SCH (16:19)
[2022-02-10 20:45] VITALS: BP 107/55
[2022-02-10] MEDS: MELATONIN 5 MG TABLET PO PRN (20:48)
[2022-02-11 04:35] VITALS: BP 132/70
[2022-02-11] MEDS: OXYGEN THERAPY IH SCH ×2 (07:30→20:00)
[2022-02-11] MEDS: DOCUSATE SODIUM 100 MG CAPSULE PO SCH ×2 (07:30→21:00)
[2022-02-11 08:16] VITALS: BP 118/70
[2022-02-11] MEDS ORDERED: MEBROFENIN TC99M/MCL ISOTOPE 1 EA INJ INJ ONE (08:40)
[2022-02-11] MEDS: POLYETHYLENE GLYCOL 3350 17 GM PACKET PO SCH ×2 (09:00→21:00)
[2022-02-11 10:15] VITALS: BP 134/76
[2022-02-11] MEDS: LevETIRAcetam 500 MG TABLET PO SCH ×2 (10:45→21:05)
[2022-02-11] MEDS: PANTOPRAZOLE SODIUM 40 MG DR TABLET PO SCH (10:45)
[2022-02-11] MEDS: LISINOPRIL 20 MG TABLET PO SCH (10:45)
[2022-02-11] MEDS: METHADONE HCL 10 MG TABLET PO SCH (10:45)
[2022-02-11] MEDS: ETHYL ALCOHOL 62% ANTISEPTIC NASAL SANITIZER 0.6 ML AMPUL NASAL SCH ×2 (10:46→21:05)
[2022-02-11 15:51] VITALS: BP 119/60
[2022-02-11] MEDS: CefTRIAXone 1 GM/DEXTROSE 50 ML IV SCH (15:54)
[2022-02-11 19:49] VITALS: BP 96/62
[2022-02-12 04:43] VITALS: BP 122/67
[2022-02-12 07:36] LABS: BASOPHILS % (AUTO) 0.5 % (0.0-2.0); EOSINOPHILS % (AUTO) 0.3 % (1.0-6.0); HEMATOCRIT 28.3 % (36-46); HEMOGLOBIN 9.4 g/dL (12.0-16.0); LYMPHOCYTES # (AUTO) 5.7 K/uL (1.0-4.8); LYMPHOCYTES % (AUTO) 44.1 % (22.0-44.0); MEAN CORPUSCULAR HGB CONC 33.3 G/dL (31.0-37.0); MEAN CORPUSCULAR VOLUME 93 fL (80-100); MONOCYTES # (AUTO) 0.6 K/uL (0.1-1.0); MONOCYTES % (AUTO) 4.8 % (2.0-9.0); NEUTROPHILS # (AUTO) 6.5 K/uL (1.8-7.7); NEUTROPHILS % (AUTO) 50.3 % (40.0-70.0); PLATELET COUNT (AUTO) 436 K/uL (150-450); RED BLOOD CELL COUNT(AUTO) 3.04 MIL/uL (4.00-5.20); RED CELL DISTRIBUTION WIDTH 14.2 % (11.5-14.5)
[2022-02-12 07:51] LABS: ALANINE AMINOTRANSFERASE 71 U/L (12-78); ALBUMIN 2.4 g/dL (3.4-5.0); ALKALINE PHOSPHATASE 169 U/L (46-116); ANION GAP 2 mmol/L (8-16); ASPARTATE AMINOTRANSFERASE 69 U/L (15-37); BILIRUBIN,TOTAL 0.3 mg/dL (0.1-1.0); CALCIUM, TOTAL 9.4 mg/dL (8.8-10.5); CARBON DIOXIDE 34 mmol/L (22-29); CHLORIDE 97 mmol/L (98-107); CREATININE 0.73 mg/dL (0.60-1.30); GLOMERULAR FILTR. RATE CALC > 60 mL/min (>60); GLUCOSE,RANDOM 101 mg/dL (70-110); POTASSIUM 4.6 mmol/L (3.5-5.1); SODIUM SERUM 133 mmol/L (136-145); TOTAL PROTEIN, SERUM 6.9 g/dL (6.4-8.2); UREA NITROGEN, BLOOD 33 mg/dL (7-18)
[2022-02-12] MEDS: PANTOPRAZOLE SODIUM 40 MG DR TABLET PO SCH (08:35)
[2022-02-12] MEDS: MULTIVITAMINS WITH MINERALS, THERAPEUTIC TABLET PO SCH (08:35)
[2022-02-12] MEDS: LevETIRAcetam 500 MG TABLET PO SCH ×2 (08:36→21:06)
[2022-02-12] MEDS: LISINOPRIL 20 MG TABLET PO SCH (08:36)
[2022-02-12] MEDS: METHADONE HCL 10 MG TABLET PO SCH (08:38)
[2022-02-12] MEDS: DOCUSATE SODIUM 100 MG CAPSULE PO SCH ×2 (08:38→21:00)
[2022-02-12] MEDS: ETHYL ALCOHOL 62% ANTISEPTIC NASAL SANITIZER 0.6 ML AMPUL NASAL SCH ×2 (08:38→21:07)
[2022-02-12] MEDS: POLYETHYLENE GLYCOL 3350 17 GM PACKET PO SCH ×2 (08:38→21:00)
[2022-02-12] MEDS: OXYGEN THERAPY IH SCH ×2 (08:39→20:00)
[2022-02-12 16:04] VITALS: BP 109/63
[2022-02-12 20:29] VITALS: BP 120/65
[2022-02-12] MEDS: ACETAMINOPHEN 325 MG TABLET PO PRN (21:07)
[2022-02-13 04:00] VITALS: BP 131/84
[2022-02-13 07:34] VITALS: BP 143/80
[2022-02-13] MEDS: LevETIRAcetam 500 MG TABLET PO SCH ×2 (08:36→20:45)
[2022-02-13] MEDS: METHADONE HCL 10 MG TABLET PO SCH (08:36)
[2022-02-13] MEDS: MULTIVITAMINS WITH MINERALS, THERAPEUTIC TABLET PO SCH (08:36)
[2022-02-13] MEDS: LISINOPRIL 20 MG TABLET PO SCH (08:36)
[2022-02-13] MEDS: OXYGEN THERAPY IH SCH ×2 (08:37→20:00)
[2022-02-13] MEDS: PANTOPRAZOLE SODIUM 40 MG DR TABLET PO SCH (08:37)
[2022-02-13] MEDS: POLYETHYLENE GLYCOL 3350 17 GM PACKET PO SCH ×2 (08:37→20:17)
[2022-02-13] MEDS: DOCUSATE SODIUM 100 MG CAPSULE PO SCH ×2 (08:37→20:17)
[2022-02-13] MEDS: ETHYL ALCOHOL 62% ANTISEPTIC NASAL SANITIZER 0.6 ML AMPUL NASAL SCH ×2 (08:37→20:47)
[2022-02-13 16:02] VITALS: BP 118/71
[2022-02-13 19:33] VITALS: BP 138/76
[2022-02-13] MEDS: ACETAMINOPHEN 325 MG TABLET PO PRN (20:45)
[2022-02-14 04:00] VITALS: BP 138/87
[2022-02-14] MEDS: OXYGEN THERAPY IH SCH ×2 (08:00→20:00)
[2022-02-14 08:19] VITALS: BP 129/83
[2022-02-14] MEDS: DOCUSATE SODIUM 100 MG CAPSULE PO SCH ×2 (09:00→20:29)
[2022-02-14] MEDS: POLYETHYLENE GLYCOL 3350 17 GM PACKET PO SCH ×2 (09:00→20:29)
[2022-02-14] MEDS: LevETIRAcetam 500 MG TABLET PO SCH ×2 (09:07→20:33)
[2022-02-14] MEDS: MULTIVITAMINS WITH MINERALS, THERAPEUTIC TABLET PO SCH (09:07)
[2022-02-14] MEDS: METHADONE HCL 10 MG TABLET PO SCH (09:07)
[2022-02-14] MEDS: LISINOPRIL 20 MG TABLET PO SCH (09:07)
[2022-02-14] MEDS: PANTOPRAZOLE SODIUM 40 MG DR TABLET PO SCH (09:07)
[2022-02-14] MEDS: ETHYL ALCOHOL 62% ANTISEPTIC NASAL SANITIZER 0.6 ML AMPUL NASAL SCH ×2 (09:09→20:33)
[2022-02-14] MEDS ORDERED: OxyCODONE HCL/ACETAMINOPHEN 5-325 MG TABLET PO SCH (16:00)
[2022-02-14 20:00] VITALS: BP 136/75
== END 2022-02-15 01:10 | DRG 950 ==
LOC: EMS 10:45 → 5S 14:51 → 6N 01-28 18:15
PROVIDERS: ADMIT Internal Medicine; ATTEND Internal Medicine
PROC: 0SRR0J9 Replacement of Right Hip Joint, Femoral Surface with Synthetic Substitute, Cemented, Open Approach (ICD-10-PCS; principal; 2022-02-07 09:20)
DX: G40.909 Epilepsy, unspecified, not intractable, without status epilepticus (principal); J18.9 Pneumonia, unspecified organism; E46 Unspecified protein-calorie malnutrition; M80.051A Age-related osteoporosis with current pathological fracture, right femur, initial encounter for fracture; R45.851 Suicidal ideations; E87.1 Hypo-osmolality and hyponatremia; F13.20 Sedative, hypnotic or anxiolytic dependence, uncomplicated; F41.9 Anxiety disorder, unspecified; F31.9 Bipolar disorder, unspecified; F11.20 Opioid dependence, uncomplicated; R73.9 Hyperglycemia, unspecified; K80.20 Calculus of gallbladder without cholecystitis without obstruction; I10 Essential (primary) hypertension; J47.9 Bronchiectasis, uncomplicated; Z20.822 Contact with and (suspected) exposure to COVID-19; K56.41 Fecal impaction; M21.751 Unequal limb length (acquired), right femur; X58.XXXA Exposure to other specified factors, initial encounter; Z88.0 Allergy status to penicillin; Z79.899 Other long term (current) drug therapy; Y93.89 Activity, other specified; Y92.89 Other specified places as the place of occurrence of the external cause; Y99.8 Other external cause status
CPT/HCPCS: 70450; 71045; 74177; 74181; 78226; 80048; 80053; 80202; 81001; 82140; 83735; 84145; 85025; 85610; 85730; 86140; 87040; 87081; 88300; 93005; 95816; 97110; 97116; 97162; 97164; 97166; 97168; 97530; 97535; 99291; A9537; C9290; G0238; G0378; G0480; G0481; J0131; J0692; J0696; J1644; J1885; J2060; J2250; J2270; J2405; J2704; J3010; J3370; J3490; J7030; J7040; J7050; J7060; J7120; Q9967; 36415-L1; 36415-TC; C1716; U0003; Z7610